=== PATIENT | male | born 1955 | race Caucasian/White ===

== ENCOUNTER 2021-05-17 14:34 | Emergency (ER) | payer MEDICAID ==
[~2021-05-17] VITALS: Ht 175.3 cm; Wt 75.0 kg
[2021-05-17] MEDS ORDERED: aspirin 81mg tab.chew PO ONE (15:00)
[2021-05-17 15:11] LABS: BASOPHILS # (AUTO) 0.1 X10'3 (0-0.2); BASOPHILS % (AUTO) 0.8 % (0-1); EOSINOPHILS # (AUTO) 0.1 X10'3 (0-0.9); EOSINOPHILS % (AUTO) 1.1 % (0-6); HEMATOCRIT 46.9 % (42.0-52.0); HEMOGLOBIN 16.3 g/dl (14.0-17.9); LYMPHOCYTES # (AUTO) 1.8 X10'3 (1.1-4.8); LYMPHOCYTES % (AUTO) 18.9 % (21-51); MEAN CORPUSCULAR HEMOGLOBIN 34.5 PG (27.0-31.0); MEAN CORPUSCULAR HGB CONC 34.6 g/dL (33.0-36.5); MEAN CORPUSCULAR VOLUME 99.6 FL (78-98); MEAN PLATELET VOLUME 7.5 FL (7.4-10.4); MONOCYTES # (AUTO) 0.9 X10'3 (0-0.9); MONOCYTES % (AUTO) 9.6 % (2-12); NEUTROPHILS # (AUTO) 6.8 X10'3 (1.8-7.7); NEUTROPHILS % (AUTO) 69.6 % (42-75); PLATELET COUNT 306 X10'3 (140-440); RED BLOOD COUNT 4.71 X10'6 (4.70-6.10); RED CELL DISTRIBUTION WIDTH 13.1 % (11.5-14.5); WHITE BLOOD COUNT 9.8 X10'3 (4.5-11.0)
[2021-05-17 15:24] LABS: APTT 28 SECONDS (22-32)
[2021-05-17 15:26] LABS: ALANINE AMINOTRANSFERASE 27 U/L (12-78); ALBUMIN 3.9 G/DL (3.4-5.0); ALKALINE PHOSPHATASE 59 IU/L (46-116); ANION GAP 5 (8-16); ASPARTATE AMINO TRANSFERASE 18 U/L (10-37); BILIRUBIN,TOTAL 0.6 MG/DL (0.1-1.0); BLOOD UREA NITROGEN 15 MG/DL (7-18); BUN/CREATININE RATIO 15.2 (5.4-32.0); CHLORIDE 104 MMOL/L (99-107); CREATININE 0.99 MG/DL (0.60-1.10); GLUCOSE 99 MG/DL (70-104); POTASSIUM 3.7 MMOL/L (3.5-5.1); SODIUM 139 MMOL/L (135-145); TOTAL CARBON DIOXIDE 30.1 MMOL/L (24-32); TOTAL PROTEIN 7.8 G/DL (6.4-8.2); eGFR 76 ML/MIN
--- NOTE | 2021-05-17 16:30 | NUR ---
PT MOVED TO ER BED 2, BEDSIDE REPORT GIVEN. PT CONNECTED TO MONITORS, DENIES CP AT THIS TIME.
[2021-05-17 18:58] VITALS: BP 126/91
[2021-05-17] MEDS ORDERED: ketorolac tromethamine 15mg/ml inj. IV ONE (19:30)
[2021-05-17 20:09] LABS: MAGNESIUM 2.1 MG/DL (1.5-2.4)
== END 2021-05-17 20:42 | disposition home or self-care (01) ==
LOC: ER 14:35
DX: R07.89 Other chest pain (principal); R00.2 Palpitations; R55 Syncope and collapse; I10 Essential (primary) hypertension; R53.1 Weakness; R10.13 Epigastric pain; F12.90 Cannabis use, unspecified, uncomplicated; Z72.89 Other problems related to lifestyle
CPT/HCPCS: 36415; 71045; 80053; 83735; 83880; 84484; 85025; 85610; 85730; 93005; 96374; 99285; J1885

== ENCOUNTER 2021-06-13 08:32 | Inpatient (IN) | payer MEDICAID ==
[~2021-06-13] VITALS: Ht 180.3 cm; Wt 75.8 kg
[2021-06-13] VITALS (20 sets, daily range): BP systolic 152–194; BP diastolic 74–105
[2021-06-13] MEDS: piperacillin/tazo 3.375gm/50ml 50 ML IV SCH (00:44)
[2021-06-13] MEDS ORDERED: morphine 4 MG/ML inj SYRINge IJ ONE (09:25)
[2021-06-13] MEDS ORDERED: pantoprazole 40MG/D5 100ML BAG 100 ML IV STA (09:27)
[2021-06-13 09:30] LABS: BASOPHILS # (AUTO) 0.1 X10'3 (0-0.2); BASOPHILS % (AUTO) 0.5 % (0-1); EOSINOPHILS # (AUTO) 0.1 X10'3 (0-0.9); EOSINOPHILS % (AUTO) 0.6 % (0-6); HEMATOCRIT 47.2 % (42.0-52.0); HEMOGLOBIN 15.9 g/dl (14.0-17.9); LYMPHOCYTES # (AUTO) 0.9 X10'3 (1.1-4.8); LYMPHOCYTES % (AUTO) 6.4 % (21-51); MEAN CORPUSCULAR HEMOGLOBIN 33.5 PG (27.0-31.0); MEAN CORPUSCULAR HGB CONC 33.6 g/dL (33.0-36.5); MEAN CORPUSCULAR VOLUME 99.7 FL (78-98); MEAN PLATELET VOLUME 7.5 FL (7.4-10.4); MONOCYTES # (AUTO) 1.5 X10'3 (0-0.9); MONOCYTES % (AUTO) 11.1 % (2-12); NEUTROPHILS # (AUTO) 10.9 X10'3 (1.8-7.7); NEUTROPHILS % (AUTO) 81.4 % (42-75); PLATELET COUNT 307 X10'3 (140-440); RED BLOOD COUNT 4.73 X10'6 (4.70-6.10); RED CELL DISTRIBUTION WIDTH 13.5 % (11.5-14.5); WHITE BLOOD COUNT 13.4 X10'3 (4.5-11.0)
[2021-06-13] MEDS ORDERED: iohexol 350MG/ML 100ml bottle IV ONE (09:35)
[2021-06-13] MEDS ORDERED: pantoprazole 40MG/NS 100ML BAG 100 ML IV ONE (09:35)
[2021-06-13] MEDS ORDERED: ondansetron/PF 4mg/2ml inj IV ONE (10:05)
[2021-06-13 10:28] LABS: ALANINE AMINOTRANSFERASE 21 U/L (12-78); ALBUMIN 3.4 G/DL (3.4-5.0); ALBUMIN/GLOBULIN RATIO 0.9 (1.1-1.5); ALKALINE PHOSPHATASE 57 IU/L (46-116); ANION GAP 9 (8-16); ASPARTATE AMINO TRANSFERASE 13 U/L (10-37); BILIRUBIN,TOTAL 1.2 MG/DL (0.1-1.0); BLOOD UREA NITROGEN 20 MG/DL (7-18); BUN/CREATININE RATIO 15.7 (5.4-32.0); CALCIUM 8.7 MG/DL (8.5-10.1); CHLORIDE 101 MMOL/L (99-107); CREATININE 1.27 MG/DL (0.60-1.10); GLUCOSE 102 MG/DL (70-104); POTASSIUM 5.1 MMOL/L (3.5-5.1); SODIUM 136 MMOL/L (135-145); TOTAL CARBON DIOXIDE 25.8 MMOL/L (24-32); TOTAL PROTEIN 7.1 G/DL (6.4-8.2); eGFR 57 ML/MIN
[2021-06-13 10:34] LABS: LIPASE 78 U/L (73-393)
[2021-06-13 11:17] LABS: CLARITY,URINE SLIGHTLY CLOUDY (Clear); COLOR,URINE YELLOW (Yellow); GLUCOSE, URINE NEGATIVE (Neg); KETONES,URINE NEGATIVE (Neg); LEUKOCYTE ESTERASE ,URINE NEGATIVE (Neg); NITRITES, URINE NEGATIVE (Neg); OCCULT BLOOD,URINE NEGATIVE (Neg); PROTEIN,URINE NEGATIVE (Neg); UROBILINOGEN,URINE 0.2 E.U/dL (0.2-1.0)
[2021-06-13] MEDS ORDERED: ringers solution, lacted 1,000 ML IV ONE (11:20)
[2021-06-13 11:26] LABS: UA COLLECTION TYPE NON-SPECIFIED
[2021-06-13 11:27] LABS: MUCUS STRANDS MODERATE /LPF (Neg); SQUAMOUS EPITHELIAL CELL,UR FEW /LPF (FEW)
[2021-06-13 11:28] LABS: BACTERIA,URINE FEW /HPF (Neg); RBC,URINE 0-2 /HPF (0-2); WBC,URINE 0-4 /HPF (0-4)
[2021-06-13] MEDS ORDERED: normal saline 1000ml 1,000 ML IV ONE (11:40)
[2021-06-13] MEDS ORDERED: mag hydrox/Alum hydrox/simeth 30ml oral suspension PO PRN (12:00)
[2021-06-13] MEDS ORDERED: magnesium hydroxide 30ml (MOM) UD suspension PO PRN (12:00)
[2021-06-13] MEDS ORDERED: morphine 2 MG/ML inj. syringe IV PRN ×2 (12:00→19:30)
[2021-06-13] MEDS ORDERED: acetaminophen 325mg tablet PO PRN (12:00)
[2021-06-13] MEDS ORDERED: ACET-2778 PO (12:29)
[2021-06-13] MEDS ORDERED: LISI10TA27 PO (12:29)
[2021-06-13] MEDS ORDERED: GABA-530 PO (12:29)
[2021-06-13] MEDS ORDERED: METO-384 PO (12:29)
[2021-06-13] MEDS: normal saline 1000ml 1,000 ML IV SCH (13:30)
--- NOTE | 2021-06-13 13:38 | NUR ---
Patient placed in gown; all patient clothing and belongings placed in two Patient Belongings bags at bedside.
[2021-06-13] MEDS ORDERED: famotidine 20mg tablet PO PRN (15:15)
[2021-06-13] MEDS ORDERED: albuterol 2.5 MG/3 ML nebule NEB PRN (15:15)
[2021-06-13] MEDS ORDERED: ondansetron/PF 4mg/2ml inj IV PRN ×2 (15:15→19:30)
[2021-06-13] MEDS ORDERED: hydrALAZINE 20mg/ml inj. IV PRN (15:25)
[2021-06-13] MEDS ORDERED: non-formulary drug (Acetaminophen (Acetaminophen ER) 1 TAB) PO PRN (15:25)
[2021-06-13] MEDS: ondansetron/PF 4mg/2ml inj IV PRN (15:36)
[2021-06-13] MEDS: ringers solution, lacted 1,000 ML IV SCH (15:37)
--- NOTE | 2021-06-13 15:38 | NUR ---
PT ARRIVED FROM er WITH 22FR IV INPLACE IN LEFT AC. PT REMAINS ON ER GURNEY. VITAL SIGNS OBTAINED. BP ELEVATED, PT STATES HE HAS BEEN HAVING THIS ISSUE FOR THE PAST SEVERAL MONTHS. ABDOMEN SHAVED WITH CLIPPERS AND WASHED WITH CHLORAHEXIDINE WIPES. IV BAG AND TUBING CHANGED TO LACTATED RINGERS AND ANESTHESIA'S SPECIALTY TUBING. SHORT FORM PLACED IN CHART FOR H&P UPDATE. EKG AND LABS OBTAINED FROM EMERGENCY ROOM. AWAITING PREOP ANTIBIOTIC ORDERS Addendum: 06/13/21 at 1541 by Tresa Jack RN Amended: Links added.
[2021-06-13] MEDS: piperacillin/tazo 4.5gm/100ml 100 ML IV SCH (16:00)
[2021-06-13] MEDS ORDERED: BUPIVAcaine 0.5% inj/PF 30 ML ONE (16:19)
[2021-06-13] MEDS ORDERED: midazolam 1 mg/ML 2ml injection ONE (17:46)
[2021-06-13] MEDS ORDERED: FENTANYL CITRATE/PF 50 MCG/1 ML VIAL ONE (17:46)
[2021-06-13] MEDS ORDERED: rocuronium 10mg/ml inj IV ONE (17:49)
[2021-06-13] MEDS ORDERED: LIDOcaine 2% (20mg/ml) 5ml vial ONE (17:49)
[2021-06-13] MEDS ORDERED: propofol inj 20 ML IV ONE (17:49)
[2021-06-13] MEDS ORDERED: labetalol 20mg/4ml (5mg/ml) syringe IV ONE (19:07)
[2021-06-13] MEDS ORDERED: ePHEDrine 50MG/ML INJ. ONE (19:07)
[2021-06-13] MEDS ORDERED: hydrALAZINE 20mg/ml inj. IV ONE (19:07)
--- NOTE | 2021-06-13 19:10 | NUR ---
PT ARRIVED TO RECOVERY ROOM VIA BED, ACCOMPANIED BY ANESTHESIA DR SHOOK-REPORT GIVEN, PT AWAKE, VSS WITH SLIGHTLY ELEVATED BP, ABD INCISION-DRSG INTACT WITH SINAN PRESENT, SCDS ON, PIV 22G TO LEFT A/C-LR RUNNING
[2021-06-13] MEDS ORDERED: proCHLORperazine 10 MG/2 ml inj IV PRN (19:30)
[2021-06-13] MEDS ORDERED: ringers solution, lacted 1,000 ML IV SCH (19:30)
[2021-06-13] MEDS ORDERED: meperidine/PF 25mg/ml syringe IV PRN ×3 (19:30)
[2021-06-13] MEDS ORDERED: enalaprilat dihydrate 2.5mg/2ml vial IV ONE ×2 (19:35→20:45)
[2021-06-13] MEDS: morphine 4 MG/ML inj SYRINge IV PRN ×3 (19:50→20:15)
[2021-06-13] MEDS ORDERED: acetaminophen 1,000mg/100ml IV 100 ML IV ONE (20:10)
--- NOTE | 2021-06-13 20:30 | NUR ---
PT AWAKE, BP STILL SLIGHTLY ELEVATED, PAIN STILL 7/10-PT HAS HAD 12 MG MORPHINE, IV TYLENOL CURRENTLY INFUSING, ABD DRSG-INTACT WITH SOME SHADOWING OF DRAINAGE NOTED, SINAN PRESENT WITH SOME RED DRAINAGE WELL, PT NAUSEA BETTER.
--- NOTE | 2021-06-13 21:10 | NUR ---
PT ABLE TO VOID SMALL AMOUNT, BP BETTER-VSS, PAIN STILL MODERATELY CONTROLLED, NO CHANGE IN DRSG AND SINAN STILL DRAINING, SCDS ON, REPORT CALLED TO MAYURI RN-ALL QUESTIONS ANSWERED, PT TAKEN TO ROOM 340A WITH ALL BELONGINGS-BED LOW AND LOCKED, CALL LIGHT IN REACH.
[2021-06-13] MEDS: docusate sod 100mg capsule PO SCH (22:20)
[2021-06-13] MEDS: gabapentin 100mg capsule PO SCH (22:20)
[2021-06-13] MEDS: morphine 2 MG/ML inj. syringe IV PRN (23:59)
[2021-06-14] VITALS (8 sets, daily range): BP systolic 131–199; BP diastolic 71–116
[2021-06-14] MEDS: piperacillin/tazo 3.375gm/50ml 50 ML IV SCH
[2021-06-14] MEDS: piperacillin/tazo 4.5gm/100ml 100 ML IV SCH ×3 (00:03→16:39)
[2021-06-14] MEDS: morphine 2 MG/ML inj. syringe IV PRN ×2 (03:30→09:09)
[2021-06-14 06:08] LABS: BASOPHILS % (AUTO) 0.2 % (0-1); EOSINOPHILS % (AUTO) 0 % (0-6); HEMATOCRIT 40.9 % (42.0-52.0); HEMOGLOBIN 13.7 g/dl (14.0-17.9); LYMPHOCYTES # (AUTO) 0.4 X10'3 (1.1-4.8); LYMPHOCYTES % (AUTO) 3.3 % (21-51); MEAN CORPUSCULAR HEMOGLOBIN 33.7 PG (27.0-31.0); MEAN CORPUSCULAR HGB CONC 33.4 g/dL (33.0-36.5); MEAN CORPUSCULAR VOLUME 100.8 FL (78-98); MEAN PLATELET VOLUME 7.6 FL (7.4-10.4); MONOCYTES % (AUTO) 7.4 % (2-12); NEUTROPHILS # (AUTO) 11.5 X10'3 (1.8-7.7); NEUTROPHILS % (AUTO) 89.1 % (42-75); PLATELET COUNT 236 X10'3 (140-440); RED BLOOD COUNT 4.06 X10'6 (4.70-6.10); RED CELL DISTRIBUTION WIDTH 13.4 % (11.5-14.5); WHITE BLOOD COUNT 12.9 X10'3 (4.5-11.0)
[2021-06-14 06:19] LABS: ALBUMIN 2.8 G/DL (3.4-5.0); ANION GAP 10 (8-16); BLOOD UREA NITROGEN 16 MG/DL (7-18); BUN/CREATININE RATIO 17.4 (5.4-32.0); CALCIUM 8.2 MG/DL (8.5-10.1); CHLORIDE 103 MMOL/L (99-107); CREATININE 0.92 MG/DL (0.60-1.10); GLUCOSE 124 MG/DL (70-104); POTASSIUM 4.4 MMOL/L (3.5-5.1); SODIUM 138 MMOL/L (135-145); TOTAL CARBON DIOXIDE 24.8 MMOL/L (24-32); eGFR 83 ML/MIN
--- NOTE | 2021-06-14 06:27 | NUR ---
Problems reprioritized. Patient report given, questions answered & plan of care reviewed with CLEO Hook.
[2021-06-14] MEDS ORDERED: HYDROcodone/acetaminophen 10/325mg tab PO ONE (07:30)
[2021-06-14] MEDS: docusate sod 100mg capsule PO SCH ×2 (08:00→19:01)
[2021-06-14] MEDS: gabapentin 100mg capsule PO SCH ×3 (08:00→19:01)
[2021-06-14] MEDS: ondansetron/PF 4mg/2ml inj IV PRN ×3 (08:27→17:37)
[2021-06-14] MEDS: metoprolol succinate 25mg (24-HOUR) SR. Tablet PO SCH (09:08)
[2021-06-14] MEDS: enoxaparin 40mg/0.4ml syringe SUBCUT SCH (09:08)
[2021-06-14] MEDS: lisinopril 10 MG tablet PO SCH (09:08)
[2021-06-14] MEDS: normal saline 1000ml 1,000 ML IV SCH ×3 (09:16→18:45)
[2021-06-14] MEDS ORDERED: pantoprazole 40mg Tablet.DR PO SCH (10:20)
--- NOTE | 2021-06-14 10:35 | NUR ---
Malnutrition consult: Pt reports wt loss with decreased appetite per malnutrition risk screen with RN. Pt currently NPO POD #1 s/p appendectomy. Pt with wt h/o 75 kg though not scaled, current scaled wt of 75.8 kg is appropriate and 97% IBW. Pt with no documented significant decrease in muscle strength or edema. Pt likely experienced some changes in eating patterns and appetite r/t pain secondary to acute appendicitis however pt currently lacks a minimum of two criteria for malnutrition. Will continue to follow. Addendum: 06/14/21 at [address] Amended: Links added.
[2021-06-14] MEDS ORDERED: CADD PCA waste documentation MC PRN (11:20)
[2021-06-14] MEDS ORDERED: naloxone 0.4 mg/ml inj IV PRN (11:20)
[2021-06-14] MEDS: HYDROmorph./NS 0.2 mg/ml CADD 50 ML IV SCH ×7 (12:48→23:00)
--- NOTE | 2021-06-14 13:04 | NUR ---
Dr Martinez aware of patients KUB results and spoke to patient encouraged patient to be ambulating. Received orders for Zofran IV 6mg Q4h Prn
[2021-06-14] MEDS ORDERED: proCHLORperazine 10 MG/2 ml inj IV PRN (20:00)
[2021-06-15] VITALS: BP 129/71
[2021-06-15] MEDS: HYDROmorph./NS 0.2 mg/ml CADD 50 ML IV SCH ×5 (01:00→09:00)
[2021-06-15] MEDS: Melatonin 3mg tablet PO SCH ×2 (01:12→20:12)
[2021-06-15] MEDS: piperacillin/tazo 4.5gm/100ml 100 ML IV SCH ×3 (01:12→16:23)
[2021-06-15] MEDS: normal saline 1000ml 1,000 ML IV SCH ×2 (03:26→13:25)
[2021-06-15 06:01] LABS: BASOPHILS % (AUTO) 0.3 % (0-1); EOSINOPHILS # (AUTO) 0.1 X10'3 (0-0.9); EOSINOPHILS % (AUTO) 0.7 % (0-6); HEMOGLOBIN 13.9 g/dl (14.0-17.9); LYMPHOCYTES % (AUTO) 10.2 % (21-51); MEAN CORPUSCULAR HEMOGLOBIN 33.9 PG (27.0-31.0); MEAN CORPUSCULAR HGB CONC 33.8 g/dL (33.0-36.5); MEAN CORPUSCULAR VOLUME 100.2 FL (78-98); MEAN PLATELET VOLUME 8.1 FL (7.4-10.4); MONOCYTES # (AUTO) 1.2 X10'3 (0-0.9); MONOCYTES % (AUTO) 12.4 % (2-12); NEUTROPHILS # (AUTO) 7.4 X10'3 (1.8-7.7); NEUTROPHILS % (AUTO) 76.4 % (42-75); PLATELET COUNT 267 X10'3 (140-440); RED CELL DISTRIBUTION WIDTH 13.3 % (11.5-14.5); WHITE BLOOD COUNT 9.7 X10'3 (4.5-11.0)
[2021-06-15 06:27] LABS: ALBUMIN 2.6 G/DL (3.4-5.0); ANION GAP 6 (8-16); BLOOD UREA NITROGEN 12 MG/DL (7-18); BUN/CREATININE RATIO 13.2 (5.4-32.0); CALCIUM 8.3 MG/DL (8.5-10.1); CHLORIDE 105 MMOL/L (99-107); CREATININE 0.91 MG/DL (0.60-1.10); GLUCOSE 97 MG/DL (70-104); POTASSIUM 4.3 MMOL/L (3.5-5.1); SODIUM 138 MMOL/L (135-145); TOTAL CARBON DIOXIDE 27.4 MMOL/L (24-32); eGFR 84 ML/MIN
--- NOTE | 2021-06-15 06:29 | NUR ---
Problems reprioritized. Patient report given, questions answered & plan of care reviewed with GINA GALLO.
--- NOTE | 2021-06-15 06:46 | NUR ---
Patient in room [facility]. I have received report from Miladys GALLO and had the opportunity to ask questions and assume patient care.
[2021-06-15 07:00] VITALS: BP_SYST 167; BP_SYST 172; BP_DIAS 86; BP_DIAS 87
[2021-06-15] MEDS: gabapentin 100mg capsule PO SCH ×3 (08:00→20:13)
[2021-06-15] MEDS: docusate sod 100mg capsule PO SCH ×2 (08:50→20:11)
[2021-06-15] MEDS: pantoprazole 40MG/NS 100ML BAG 100 ML IV SCH (08:50)
[2021-06-15] MEDS: lisinopril 10 MG tablet PO SCH (08:52)
[2021-06-15] MEDS: metoprolol succinate 25mg (24-HOUR) SR. Tablet PO SCH (08:52)
[2021-06-15] MEDS: enoxaparin 40mg/0.4ml syringe SUBCUT SCH (08:53)
[2021-06-15 12:00] VITALS: BP 141/80
--- NOTE | 2021-06-15 13:45 | NUR ---
Patient in room [facility]. I have received report from Maegan, Student Nurse and had the opportunity to ask questions and assume patient care.
[2021-06-15] MEDS: ringers solution, lacted 1,000 ML IV SCH (15:20)
--- NOTE | 2021-06-15 18:19 | NUR ---
Patient in room [facility]. I have received report from Lori GALLO and had the opportunity to ask questions and assume patient care.
--- NOTE | 2021-06-15 18:27 | NUR ---
Problems reprioritized. Patient report given, questions answered & plan of care reviewed with Ara GALLO traveler.
[2021-06-15 20:00] VITALS: BP 164/79
[2021-06-15] MEDS: morphine 2 MG/ML inj. syringe IV PRN (20:15)
[2021-06-16] VITALS: BP 153/86
[2021-06-16] MEDS: normal saline 1000ml 1,000 ML IV SCH (00:04)
[2021-06-16] MEDS: morphine 2 MG/ML inj. syringe IV PRN (05:19)
[2021-06-16 06:17] LABS: BASOPHILS % (AUTO) 0.4 % (0-1); EOSINOPHILS # (AUTO) 0.2 X10'3 (0-0.9); EOSINOPHILS % (AUTO) 1.9 % (0-6); HEMATOCRIT 43.9 % (42.0-52.0); HEMOGLOBIN 15.2 g/dl (14.0-17.9); LYMPHOCYTES # (AUTO) 1.2 X10'3 (1.1-4.8); LYMPHOCYTES % (AUTO) 14.9 % (21-51); MEAN CORPUSCULAR HEMOGLOBIN 34.2 PG (27.0-31.0); MEAN CORPUSCULAR HGB CONC 34.5 g/dL (33.0-36.5); MEAN CORPUSCULAR VOLUME 99.3 FL (78-98); MONOCYTES # (AUTO) 1.3 X10'3 (0-0.9); MONOCYTES % (AUTO) 15.4 % (2-12); NEUTROPHILS # (AUTO) 5.6 X10'3 (1.8-7.7); NEUTROPHILS % (AUTO) 67.4 % (42-75); PLATELET COUNT 328 X10'3 (140-440); RED BLOOD COUNT 4.43 X10'6 (4.70-6.10); RED CELL DISTRIBUTION WIDTH 13.3 % (11.5-14.5); WHITE BLOOD COUNT 8.3 X10'3 (4.5-11.0)
[2021-06-16 06:48] LABS: ALBUMIN 2.7 G/DL (3.4-5.0); ANION GAP 10 (8-16); BLOOD UREA NITROGEN 12 MG/DL (7-18); BUN/CREATININE RATIO 11.7 (5.4-32.0); CALCIUM 8.5 MG/DL (8.5-10.1); CHLORIDE 102 MMOL/L (99-107); CREATININE 1.03 MG/DL (0.60-1.10); GLUCOSE 93 MG/DL (70-104); POTASSIUM 3.9 MMOL/L (3.5-5.1); SODIUM 138 MMOL/L (135-145); TOTAL CARBON DIOXIDE 26.1 MMOL/L (24-32); eGFR 73 ML/MIN
--- NOTE | 2021-06-16 06:56 | NUR ---
Problems reprioritized. Patient report given, questions answered & plan of care reviewed with jordan GALLO.
[2021-06-16 07:00] VITALS: BP 209/109
[2021-06-16] MEDS: pantoprazole 40MG/NS 100ML BAG 100 ML IV SCH (07:09)
[2021-06-16] MEDS: lisinopril 10 MG tablet PO SCH (07:11)
[2021-06-16] MEDS: docusate sod 100mg capsule PO SCH (07:12)
[2021-06-16] MEDS: gabapentin 100mg capsule PO SCH (07:12)
[2021-06-16] MEDS: enoxaparin 40mg/0.4ml syringe SUBCUT SCH (07:12)
[2021-06-16] MEDS: metoprolol succinate 25mg (24-HOUR) SR. Tablet PO SCH (07:12)
[2021-06-16 07:30] LABS: PLATELET ESTIMATE NORMAL; TOTAL CELLS COUNTED 100
[2021-06-16] MEDS: piperacillin/tazo 4.5gm/100ml 100 ML IV SCH ×2 (08:12)
[2021-06-16 08:18] VITALS: BP 158/62
[2021-06-16 12:27] VITALS: BP 140/80
[2021-06-16] MEDS ORDERED: METR-159 PO (12:57)
[2021-06-16] MEDS ORDERED: CIPR-259 PO (12:57)
[2021-06-16] MEDS ORDERED: PANT40TA54 PO (12:57)
--- NOTE | 2021-06-16 13:18 | NUR ---
Patient in room [facility]. I have received report from Maegan,student nurse and had the opportunity to ask questions and assume patient care.
--- NOTE | 2021-06-16 13:52 | NUR ---
Called in medications to Adrian at [facility].
--- NOTE | 2021-06-16 14:42 | NUR ---
DISCHARGE NOTE: Discussed discharge paperwork with pt. IV DC'd, cannula intact, no s/sx bleeding noted. Discussed f/u care with PCP, and surgeon. Pt. provided with contact information. Medications and possible ASE discussed with pt. They have been called in to preferred pharmacy. Pt. dressed himself and left with his belongings.
--- NOTE | 2021-06-16 15:42 | NUR ---
charting by Colby ALAN reviewed by Kacey Jacques RN ( note entered by Kacey Jacques)
[2021-06-16] MEDS ORDERED: piperacillin/tazo 3.375gm/50ml 50 ML IV SCH (16:00)
== END 2021-06-16 14:11 | disposition home or self-care (01) | DRG 233 ==
LOC: ER 08:32 → ED HOLD 11:59 → SUR 3N 21:11
PROVIDERS: ADMIT Family Medicine; ATTEND Family Medicine
PROC: 0W9G4ZZ Drainage of Peritoneal Cavity, Percutaneous Endoscopic Approach (ICD-10-PCS; 2021-06-13)
PROC: BW211ZZ Computerized Tomography (CT Scan) of Abdomen and Pelvis using Low Osmolar Contrast (ICD-10-PCS; 2021-06-13)
PROC: 0DTJ4ZZ Resection of Appendix, Percutaneous Endoscopic Approach (ICD-10-PCS; principal; 2021-06-13 18:05)
DX: K35.33 Acute appendicitis with perforation, localized peritonitis, and gangrene, with abscess (principal); N17.9 Acute kidney failure, unspecified; F12.90 Cannabis use, unspecified, uncomplicated; Z20.822 Contact with and (suspected) exposure to COVID-19; I10 Essential (primary) hypertension; I45.10 Unspecified right bundle-branch block; M13.0 Polyarthritis, unspecified; Z91.19 Patient's noncompliance with other medical treatment and regimen; Z79.899 Other long term (current) drug therapy
CPT/HCPCS: 36415; 74018; 74177; 80048; 80053; 81001; 83690; 85007; 85025; 87081; 87635; 93005; 93306; 96365; 96375; 99285; A4215; A4618; A7000; C9113; C9803; G0378; J0131; J0360; J0780; J1650; J2175; J2250; J2270; J2405; J2543; J2704; J3010; J3490; J7030; J7120; Q9967; S0020